=== PATIENT | male | born 1950 | race Caucasian/White ===

== ENCOUNTER 2018-08-12 12:10 | Emergency (ER) | payer OTHER ==
[~2018-08-12] VITALS: Ht 188 cm; Wt 113.4 kg
[~2018-08-12 12:10] MED LIST: ASPIR 8181 MG; GLUCOPHAGE XR500 MG; LOSARTAN POTASS25 MG; SIMVASTATIN20 MG
== END 2018-08-12 15:33 | disposition home or self-care (01) ==
LOC: ER 12:10
DX: S30.1XXA Contusion of abdominal wall, initial encounter (principal); S20.212A Contusion of left front wall of thorax, initial encounter; S20.211A Contusion of right front wall of thorax, initial encounter; R10.11 Right upper quadrant pain; W18.39XA Other fall on same level, initial encounter; Y93.89 Activity, other specified; Y92.89 Other specified places as the place of occurrence of the external cause; Y99.8 Other external cause status

== ENCOUNTER 2020-12-01 11:37 | Emergency (ER) | payer OTHER ==
[~2020-12-01] VITALS: Ht 180.3 cm; Wt 131.5 kg
== END 2020-12-01 15:23 | disposition home or self-care (01) ==
LOC: ER 11:37
DX: S43.084A Other dislocation of right shoulder joint, initial encounter (principal); W18.39XA Other fall on same level, initial encounter; Y93.89 Activity, other specified; Y92.69 Other specified industrial and construction area as the place of occurrence of the external cause; Y99.8 Other external cause status

== ENCOUNTER 2020-12-10 12:19 | Outpatient (CLI) | payer OTHER | END 2020-12-10 12:26 | disposition home or self-care (01) | LOC: TOM 12:19 | PROVIDERS: ATTEND Orthopaedic Surgery | DX: M25.511 Pain in right shoulder (principal); S43.014D Anterior dislocation of right humerus, subsequent encounter; X58.XXXD Exposure to other specified factors, subsequent encounter ==

== ENCOUNTER 2021-02-03 12:48 | Outpatient (CLI) | payer OTHER | END 2021-02-03 12:54 | disposition home or self-care (01) | LOC: RAD 12:48 | DX: S42.141A Displaced fracture of glenoid cavity of scapula, right shoulder, initial encounter for closed fracture (principal) ==

== ENCOUNTER 2021-04-09 13:23 | Outpatient (CLI) | payer OTHER | END 2021-04-09 13:31 | disposition home or self-care (01) | LOC: TOM 13:23 | PROVIDERS: ATTEND Orthopaedic Surgery | DX: M75.121 Complete rotator cuff tear or rupture of right shoulder, not specified as traumatic (principal); M19.011 Primary osteoarthritis, right shoulder ==

== ENCOUNTER → 2021-05-27 | Outpatient (CLI) | payer OTHER | END | disposition home or self-care (01) | LOC: PPH VACUNA 08:00 | PROVIDERS: ATTEND Emergency Medicine Pediatric Emergency Medicine | DX: Z23 Encounter for immunization (principal) ==

== ENCOUNTER 2021-06-11 11:03 | Outpatient (CLI) | payer OTHER | END 2021-06-11 11:04 | disposition home or self-care (01) | LOC: NUCLEAR 11:03 | PROVIDERS: ATTEND Orthopaedic Surgery | DX: M81.0 Age-related osteoporosis without current pathological fracture (principal) ==

== ENCOUNTER 2021-06-24 11:41 | Outpatient (CLI) | payer OTHER | END 2021-06-24 11:51 | disposition home or self-care (01) | LOC: RAD 11:41 | PROVIDERS: ATTEND Physical Medicine & Rehabilitation | DX: M25.561 Pain in right knee (principal); S43.004A Unspecified dislocation of right shoulder joint, initial encounter; M25.521 Pain in right elbow ==